=== PATIENT | male | born 1950 | race Caucasian/White ===

== ENCOUNTER 2021-08-04 06:01 | Day surgery (SDC) | payer MEDICARE, BC ==
[2021-07-30 11:53] LABS: BASOPHILS % (AUTO) 0.7 % (0-1); EOSINOPHILS # (AUTO) 0.2 X10'3 (0-0.9); EOSINOPHILS % (AUTO) 2.5 % (0-6); HEMATOCRIT 42.5 % (42.0-52.0); HEMOGLOBIN 14.2 g/dl (14.0-17.9); LYMPHOCYTES # (AUTO) 1.3 X10'3 (1.1-4.8); LYMPHOCYTES % (AUTO) 18.8 % (21-51); MEAN CORPUSCULAR HEMOGLOBIN 29.6 PG (27.0-31.0); MEAN CORPUSCULAR HGB CONC 33.3 g/dL (33.0-36.5); MEAN CORPUSCULAR VOLUME 88.8 FL (78-98); MEAN PLATELET VOLUME 7.1 FL (7.4-10.4); MONOCYTES # (AUTO) 0.6 X10'3 (0-0.9); MONOCYTES % (AUTO) 8.2 % (2-12); NEUTROPHILS # (AUTO) 4.7 X10'3 (1.8-7.7); NEUTROPHILS % (AUTO) 69.8 % (42-75); PLATELET COUNT 291 X10'3 (140-440); RED BLOOD COUNT 4.79 X10'6 (4.70-6.10); WHITE BLOOD COUNT 6.7 X10'3 (4.5-11.0)
[2021-07-30 12:05] LABS: ALANINE AMINOTRANSFERASE 30 U/L (12-78); ALBUMIN 3.8 G/DL (3.4-5.0); ALBUMIN/GLOBULIN RATIO 1.4 (1.1-1.5); ALKALINE PHOSPHATASE 59 IU/L (46-116); ANION GAP 8 (8-16); ASPARTATE AMINO TRANSFERASE 25 U/L (10-37); BILIRUBIN,TOTAL 0.3 MG/DL (0.1-1.0); BLOOD UREA NITROGEN 30 MG/DL (7-18); BUN/CREATININE RATIO 28.6 (5.4-32.0); CALCIUM 9.5 MG/DL (8.5-10.1); CHLORIDE 104 MMOL/L (99-107); CREATININE 1.05 MG/DL (0.60-1.10); GLUCOSE 100 MG/DL (70-104); SODIUM 142 MMOL/L (135-145); TOTAL PROTEIN 6.5 G/DL (6.4-8.2); eGFR 70 ML/MIN
[2021-07-30 12:12] LABS: APTT 27 SECONDS (22-32)
[~2021-08-04] VITALS: Ht 180.3 cm; Wt 74.5 kg
[2021-08-04] VITALS (10 sets, daily range): BP systolic 106–139; BP diastolic 56–90
[2021-08-04] MEDS ORDERED: LORazepam 0.5 MG tablet PO PRN (06:20)
[2021-08-04] MEDS ORDERED: nitroGLYCERIN 0.4mg SUBLingual tab SL PRN ×2 (06:20→09:55)
[2021-08-04] MEDS ORDERED: normal saline 1,000 ML IV SCH (06:20)
[2021-08-04] MEDS ORDERED: diphenhydrAMINE 25mg capsule PO PRN (06:20)
[2021-08-04] MEDS ORDERED: PREG75CA75 PO (06:26)
[2021-08-04] MEDS ORDERED: BUPR1PAT23 TOP (06:26)
[2021-08-04] MEDS ORDERED: ROSU10TA28 PO (06:26)
[2021-08-04] MEDS ORDERED: IRBE300T18 PO (06:26)
[2021-08-04] MEDS ORDERED: VENL150C58 PO (06:26)
[2021-08-04] MEDS ORDERED: ASPI81TA52 PO (06:27)
[2021-08-04] MEDS ORDERED: midazolam 1 mg/ML 2ml injection ONE (07:47)
[2021-08-04] MEDS ORDERED: fentaNYL/PF 50MCG/1 ML 2ML syringe ONE (07:47)
[2021-08-04] MEDS ORDERED: LIDOcaine 1% (10mg/ml)w/preservative injection 20ml MDV ONE (07:48)
[2021-08-04] MEDS ORDERED: iohexol 350 MG/ML 50ML vial IV ONE ×2 (07:48→08:39)
[2021-08-04] MEDS ORDERED: iohexol 350MG/ML 100ml bottle IV ONE (07:48)
[2021-08-04] MEDS ORDERED: OXAZEpam 15mg capsule PO PRN (09:55)
[2021-08-04] MEDS ORDERED: ondansetron/PF 4mg/2ml inj IV PRN (09:55)
[2021-08-04] MEDS ORDERED: proCHLORperazine 10 MG/2 ml inj IV PRN (09:55)
[2021-08-04] MEDS ORDERED: HYDROcodone/acetaminophen 5mg/325mg tablet PO PRN (09:55)
[2021-08-04] MEDS ORDERED: HYDROcodone/acetaminophen 10/325mg tab PO PRN (09:55)
[2021-08-04] MEDS ORDERED: normal saline 1000ml 1,000 ML IV SCH (09:55)
[2021-08-05] MEDS ORDERED: FLU VACC QS2021-22(6MOS UP)/PF 60 MCG/0.5 ML SYRINGE IM ONE (10:30)
== END 2021-08-04 15:15 | disposition home or self-care (01) ==
LOC: SSTAY O 06:01
PROVIDERS: ATTEND Internal Medicine Cardiovascular Disease
DX: R53.83 Other fatigue (principal); R06.02 Shortness of breath; I25.10 Atherosclerotic heart disease of native coronary artery without angina pectoris; I10 Essential (primary) hypertension; E78.5 Hyperlipidemia, unspecified; G47.33 Obstructive sleep apnea (adult) (pediatric); G89.4 Chronic pain syndrome; M19.90 Unspecified osteoarthritis, unspecified site; Z79.01 Long term (current) use of anticoagulants; Z87.891 Personal history of nicotine dependence; Z95.1 Presence of aortocoronary bypass graft; Z79.82 Long term (current) use of aspirin; Z79.899 Other long term (current) drug therapy; Z86.19 Personal history of other infectious and parasitic diseases
CPT/HCPCS: 36415; 71046; 80053; 85025; 85610; 85730; 93005; 93459; 99152; 99153; C1760; C1769; J1644; J2250; J3010; J3490; J7030; Q0163; Q9967; A4620; A6258